=== PATIENT | female | born 1945 | race Caucasian/White ===

== ENCOUNTER → 2017-10-16 | Day surgery (SDC) | payer MEDICARE ==
[2017-10-14 13:13] LABS: BASOPHILS # (AUTO) 0.1 (0.0-0.1); BASOPHILS % 0.9 % (0.0-1.0); EOSINOPHILS # (AUTO) 0.2 (0.0-0.4); EOSINOPHILS % 1.7 % (0.0-6.0); HEMOGLOBIN 11.1 g/dL (12.0-16.0); LYMPHOCYTES # (AUTO) 3.4 (1.0-3.2); LYMPHOCYTES % 33.6 % (18.0-39.1); MEAN CORPUSCULAR HEMOGLOBIN 30.7 pg (28-32); MEAN CORPUSCULAR HGB CONC 33.6 g/dL (31-35); MEAN CORPUSCULAR VOLUME 91.4 fL (81-99); MONOCYTES # (AUTO) 0.8 (0.2-0.8); MONOCYTES % 7.4 % (4.4-11.3); NEUTROPHILS # (AUTO) 5.6 (2.1-6.9); NEUTROPHILS % 55.7 % (38.7-80.0); PLATELET COUNT 309 x10e3/uL (140-360); RED BLOOD COUNT 3.61 x10e6/uL (3.6-5.1); RED CELL DISTRIBUTION WIDTH 13.1 % (11.7-14.4)
[~2017-10-16] MED LIST: ABILIFY15 MG PO; ADVAIR 100-501 EACH INH; AMLODIPINE BESYL5 MG PO; ATORVASTATIN CA20 MG PO; BUPIVACAINE 0.25% 30ML SDV INJ ONE; DIOVAN320 MG PO; EFFEXOR XR150 MG PO; FENTANYL CITRATE/PF 100MCG/2 ML INJ ONE; IOPAMIDOL 200 MG/ML 20 ML VIAL IT ONE; LIDOCAINE HCL 1% 30ML-PF VIAL ONE; LIDOCAINE HCL 2% LOCAL INJ 5 ML SDV VIAL INJ ONE; MELATONIN PO; MIDAZOLAM HCL 2 MG/2 ML VIAL ONE; NEXIUM40 MG PO; NORCO 10-325 T1 EACH PO; PROPOFOL IV EMULSION 10 MG/ML 20 ML VIAL ONE; SOMA350 MG PO; WELLBUTRIN SR150 MG PO; ZOFRAN ODT4 MG PO
== END | disposition home or self-care (01) ==
LOC: OR 05:32
PROVIDERS: ATTEND Physical Medicine & Rehabilitation Pain Medicine
DX: M54.81 Occipital neuralgia (principal); G44.89 Other headache syndrome; Z86.711 Personal history of pulmonary embolism; Z98.1 Arthrodesis status; M54.12 Radiculopathy, cervical region; M47.816 Spondylosis without myelopathy or radiculopathy, lumbar region; J44.9 Chronic obstructive pulmonary disease, unspecified; I10 Essential (primary) hypertension; K25.9 Gastric ulcer, unspecified as acute or chronic, without hemorrhage or perforation; F32.9 Major depressive disorder, single episode, unspecified; Z01.810 Encounter for preprocedural cardiovascular examination; Z01.812 Encounter for preprocedural laboratory examination; Z96.652 Presence of left artificial knee joint
CPT/HCPCS: 36415; 64405; 77003; 85025; 93005; J2001 ×2; J2250; Q9966

== ENCOUNTER → 2018-01-08 | Day surgery (SDC) | payer MEDICARE ==
[2018-01-06 13:02] LABS: BASOPHILS # (AUTO) 0.1 (0.0-0.1); EOSINOPHILS # (AUTO) 0.2 (0.0-0.4); HEMATOCRIT 30.9 % (34.2-44.1); HEMOGLOBIN 10.6 g/dL (12.0-16.0); LYMPHOCYTES # (AUTO) 2.6 (1.0-3.2); MEAN CORPUSCULAR HEMOGLOBIN 30.1 pg (28-32); MEAN CORPUSCULAR HGB CONC 34.3 g/dL (31-35); MEAN CORPUSCULAR VOLUME 87.8 fL (81-99); MONOCYTES # (AUTO) 0.8 (0.2-0.8); MONOCYTES % 9.3 % (4.4-11.3); NEUTROPHILS % 57.1 % (38.7-80.0); PLATELET COUNT 346 x10e3/uL (140-360); RED BLOOD COUNT 3.52 x10e6/uL (3.6-5.1); RED CELL DISTRIBUTION WIDTH 12.4 % (11.7-14.4)
[~2018-01-08] MED LIST changes: -BUPIVACAINE 0.25% 30ML SDV INJ ONE; +CYMBALTA60 MG PO; +DITROPAN XL10 MG PO; +HYDROCHLOROTHIA25 MG PO; +OLANZAPINE5 MG PO; +PROAIR HFA INH8.5 GM INH; +TRIAMCINOLONE ACET 40 MG/ML VIAL ONE
== END | disposition home or self-care (01) ==
LOC: OR 06:04
PROVIDERS: ATTEND Physical Medicine & Rehabilitation Pain Medicine
DX: M46.1 Sacroiliitis, not elsewhere classified (principal); M47.816 Spondylosis without myelopathy or radiculopathy, lumbar region; M47.817 Spondylosis without myelopathy or radiculopathy, lumbosacral region; M25.562 Pain in left knee; M54.81 Occipital neuralgia; Z96.652 Presence of left artificial knee joint; Z98.1 Arthrodesis status; J44.9 Chronic obstructive pulmonary disease, unspecified; I10 Essential (primary) hypertension; I44.0 Atrioventricular block, first degree; Z88.6 Allergy status to analgesic agent; Z88.3 Allergy status to other anti-infective agents; Z88.0 Allergy status to penicillin; Z01.812 Encounter for preprocedural laboratory examination; Z68.32 Body mass index [BMI] 32.0-32.9, adult; Z86.711 Personal history of pulmonary embolism
CPT/HCPCS: 36415; 85025; G0260; J2001 ×2; J2250; J3301; Q9966; 77003

== ENCOUNTER → 2018-01-20 | Outpatient (CLI) | payer MEDICARE ==
[~2018-01-20] MED LIST changes: -FENTANYL CITRATE/PF 100MCG/2 ML INJ ONE; -IOPAMIDOL 200 MG/ML 20 ML VIAL IT ONE; -LIDOCAINE HCL 1% 30ML-PF VIAL ONE; -LIDOCAINE HCL 2% LOCAL INJ 5 ML SDV VIAL INJ ONE; -MIDAZOLAM HCL 2 MG/2 ML VIAL ONE; -PROPOFOL IV EMULSION 10 MG/ML 20 ML VIAL ONE; -TRIAMCINOLONE ACET 40 MG/ML VIAL ONE
== END ==
LOC: CT 12:27
PROVIDERS: ATTEND Physical Medicine & Rehabilitation Pain Medicine
CPT/HCPCS: 72131

== ENCOUNTER → 2018-03-19 | Outpatient (CLI) | payer MEDICARE ==
[~2018-03-19] MED LIST changes: +IOPAMIDOL 370 MG/ML 200 ML INFUS..BTL INJ ONE; +SODIUM CHLORIDE 0.9% 250ML 250 ML ONE; +SODIUM CHLORIDE 0.9% 500ML 500 ML ONE; +SODIUM CHLORIDE 0.9% 50ML 50 ML ONE
[2018-03-19 14:56] LABS: CREATININE, SERUM 1.25 mg/dL (0.57-1.11)
--- NOTE | 2018-03-19 17:25 | Diagnostic Imaging Report ---
PROCEDURE: CT scan of the chest WITH intravenous contrast, using PE protocol. TECHNIQUE: The chest was scanned utilizing a multidetector helical scanner from the lung apex through the level of the adrenal glands after the IV administration of 60 cc of Isovue 370 with special concentration in the pulmonary arteries.. Coronal and sagittal multiplanar reformations were obtained. COMPARISON: None. INDICATIONS: SHORT OF BREATH FINDINGS: Lines/tubes: None. Lungs and Airways: No filling defects in the main, right or left pulmonary arteries to the segmental level to suggest pulmonary embolism. Linear opacities in the posterior left lower lobe likely represent subsegmental atelectasis (series 3, image 96). 3 mm pulmonary nodule in the posteromedial left lower lobe (series 3, image 96). No other pulmonary nodules. No masses, other opacities or consolidation. Airways are clear, without endobronchial lesions. Pleura: No effusion, or pneumothorax. Heart and mediastinum: Thyroid is unremarkable. Heart size is normal. No pericardial effusion. Vascular calcification of the coronary arteries and thoracic aortic arch. The aorta is non-aneurysmal. Main pulmonary artery is normal in caliber. Lymph nodes: No mediastinal, hilar, or axillary adenopathy. Abdomen: Limited contrast-enhanced views of the upper abdomen show no abnormality within the visualized pancreas, kidneys or adrenal glands. 3.8 x 2.5 x 4.1 cm fluid density lesion in hepatic segment III (series 2, image 27). 6 mm calcification at the hepatic dome (series 2, image 81) and punctate calcification in hepatic segment VII (series 2, image 104), which may represent calcified granulomas. Moderate to marked central intrahepatic biliary ductal dilation and marked dilation of the common bile duct, which measures approximately 1.9 cm at the simon hepatis. No radiopaque intraluminal filling defects. Cholecystectomy clips. Marked fatty replacement of the pancreas. Bones: No aggressive lytic lesions. Moderate to marked disc changes in the thoracic spine, predominantly T2-T3, T3-T4, and T4-T5. Generalized osteopenia. IMPRESSION: 1. No CT evidence of pulmonary embolism. 2. 3 mm pulmonary nodule in the left lower lobe. If this is a low risk patient, no further followup is indicated per Fleischner Society 2017 guidelines. 3. Lungs are otherwise grossly clear. 4. 4.1 cm fluid density lesion in hepatic segment III, likely represents a simple cyst. 5. Moderate to marked central intrahepatic biliary ductal dilation and marked dilation of the common bile duct. No radiopaque intraluminal filling defects are identified. This may represent sequela of prior cholecystectomy. Consider contrast-enhanced MRI abdomen/MRCP on a nonemergent basis given the recent administration of contrast, if there is clinical concern for choledocholithiasis. Jony Gates M.D. Dictated by: Jony Gates M.D. on 03/19/2018 at 17:29 Electronically approved by: Jony Gates M.D. on 03/19/2018 at 17:29
== END ==
LOC: RESP 13:29
PROVIDERS: ATTEND Internal Medicine Pulmonary Disease
DX: R06.00 Dyspnea, unspecified (principal)
CPT/HCPCS: 36415; 71260; 82565; 84520; J7040; J7050; 94060; 94727; 94729